=== PATIENT | male | born 1950 | race Caucasian/White ===

== ENCOUNTER 2016-08-12 08:00 | Emergency (ER) | payer MEDICARE, OTHER ==
[~2016-08-12] VITALS: Ht 170.2 cm; Wt 77.0 kg
[2016-08-12 08:04] VITALS: Ht 170.2 cm; Wt 77.0 kg
--- NOTE | 2016-08-12 09:55 | RADRPT ---
PROCEDURE: X-ray, Neck Soft Tissue. CLINICAL INDICATION: Dysphasia. TECHNIQUE: Soft tissue neck x-ray, AP and lateral views. COMPARISON: None. FINDINGS: Bony mineralization appears normal to slightly decreased. Vertebral body height and alignment are no rmal. Intervertebral disk narrowing with endplate sclerosis is most substantial at C4-C5. Anterior osteophytes are observed at C4-C5 and C5-C6. Moderate multilevel facet degenerative changes are seen throughout the cervical spine. Prevertebral/retropharyngeal soft tissues are normal. The epiglotti s is normal. The pre-epiglottic space is clear. IMPRESSION: No radiographic evidence of soft tissue abnormality of the neck. C4-C6 degenerative disk disease with multilevel facet arthropathy. RPTAT: HLST .Dalia Bro MD, Date Time Electronically viewed and signed by .Dalia Bro MD, on 08/12/2016 09:55 .T/
--- NOTE | 2016-08-12 10:24 | ERD ---
ER Documentation Chief Complaint Date/Time DATE: 08/12/16 TIME: 10:20 Chief Complaint difficultyh swallowing x 2 wks when eating & h/a after flu shot HPI 66-year-old male with no significant past medical history presents to the ED complaining of dysphasia that started 2 weeks ago. Reports that he is unable to swallow solids. States that he is able to swallow liquids without difficulty. Denies any anxiety. Denies any chest pain, shortness of breath, wheezing, stridor, headache, nausea, vomiting. Patient reports that this happened 3 years ago but this feels slightly different. ROS All systems reviewed and are negative except as per history of present illness. PMhx/Soc Medical and Surgical Hx: pt denies Surgical Hx History of Surgery: No Anesthesia Reaction: No Hx Neurological Disorder: No Hx Respiratory Disorders: No Hx Cardiac Disorders: Yes (htn) Hx Psychiatric Problems: No Hx Miscellaneous Medical Probl: No Hx Alcohol Use: No Hx Substance Use: No Physical Exam Vitals Vital Signs Date Time Temp Pulse Resp B/P Pulse Ox O2 Delivery O2 Flow Rate FiO2 08/12/16 08:04 97.4 58 18 147/87 98 Physical Exam Const: [id number], well-nourished. In no acute distress. Head: Atraumatic, normocephalic Eyes: Normal Conjunctiva without injection. No purulent discharge. PERRL. EOMI ENT: Normal external ear. Ear canal without erythema. Tympanic membrane pearly lane without effusion or bulging. Nasal canal clear with normal turbinates. Moist oropharynx without tonsillar exudates. Non-erythematous pharynx. Uvula midline. No drooling. No trismus. Neck: Full range of motion. No meningismus. No cervical lymphadenopathy. Resp: Clear to auscultation bilaterally. No wheezing, rhonchi, rales, or crackles. No accessory muscle use. No retractions. Cardio: Regular rate and rhythm. No murmurs, rubs or gallops. Abd: Soft, non tender, non distended. Normal bowel sounds. No palpable masses. No rebound tenderness. No guarding. Skin: No petechiae or rashes Back: No midline tenderness. No CVA tenderness. Ext: No cyanosis, or edema. Neur: Awake and alert. Psych: Normal Mood and Affect Procedures/MDM This is a 66-year-old male with no significant past medical history presents to the ED complaining of dysphasia that started 2 weeks ago. Patient is afebrile and nontoxic-appearing. Patient has normal vital signs. Patient speaking in full sentences without difficulty. No stridor noted. A soft tissue x-ray of the neck was ordered to further evaluate patient. PROCEDURE: X-ray, Neck Soft Tissue. CLINICAL INDICATION: Dysphasia. TECHNIQUE: Soft tissue neck x-ray, AP and lateral views. COMPARISON: None. FINDINGS: Bony mineralization appears normal to slightly decreased. Vertebral body height and alignment are normal. Intervertebral disk narrowing with endplate sclerosis is most substantial at C4-C5. Anterior osteophytes are observed at C4- C5 and C5-C6. Moderate multilevel facet degenerative changes are seen throughout the cervical spine. Prevertebral/retropharyngeal soft tissues are normal. The epiglottis is normal. The pre-epiglottic space is clear. IMPRESSION: No radiographic evidence of soft tissue abnormality of the neck. C4-C6 degenerative disk disease with multilevel facet arthropathy. Based on patient's age greater than 40 years old, cannot be ruled out at this time. No foreign bodies noted at this time. Differentials include Achalasia Schatzki Ring, Esophageal web. An endoscopy was ordered to further evaluate patient. Low suspicion for acute myocardial infarction, pneumothorax, pneumonia, cardiac tamponade, pulmonary embolism, pleural effusion, AAA, aortic dissection, Boerhaave's syndrome, cardiac dysrhythmias,meningitis, intracranial bleed, seizure, stroke, TIA or other emergent conditions. Departure Diagnosis: Primary Impression: Dysphagia Dysphagia type: unspecified Qualified Code: R13.10 - Dysphagia, unspecified type Condition: Stable Patient Instructions: Treating Dysphagia, Understanding Dysphagia Referrals: [facility] YOU HAVE RECEIVED A MEDICAL SCREENING EXAM AND THE RESULTS INDICATE THAT YOU DO NOT HAVE A CONDITION THAT REQUIRES URGENT TREATMENT IN THE EMERGENCY DEPARTMENT. FURTHER EVALUATION AND TREATMENT OF YOUR CONDITION CAN WAIT UNTIL YOU ARE SEEN IN YOUR DOCTORS OFFICE WITHIN THE NEXT 1-2 DAYS. IT IS YOUR RESPONSIBILITY TO MAKE AN APPOINTMENT FOR FOLOW-UP CARE. IF YOU HAVE A PRIMARY DOCTOR --you should call your primary doctor and schedule an appointment IF YOU DO NOT HAVE A PRIMARY DOCTOR YOU CAN CALL OUR PHYSICIAN REFERRAL HOTLINE AT IF YOU CAN NOT AFFORD TO SEE A PHYSICIAN YOU CAN CHOSE FROM THE FOLLOWING [facility] [address] [facility] [address] [facility] [address] [facility] [address] [facility] [address] [facility]. [facility] [address] [facility]. [facility] YOU HAVE RECEIVED A MEDICAL SCREENING EXAM AND THE RESULTS INDICATE THAT YOU DO NOT HAVE A CONDITION THAT REQUIRES URGENT TREATMENT IN THE EMERGENCY DEPARTMENT. FURTHER EVALUATION AND TREATMENT OF YOUR CONDITION CAN WAIT UNTIL YOU ARE SEEN IN YOUR DOCTORS OFFICE WITHIN THE NEXT 1-2 DAYS. IT IS YOUR RESPONSIBILITY TO MAKE AN APPOINTMENT FOR FOLOW-UP CARE. IF YOU HAVE A PRIMARY DOCTOR --you should call your primary doctor and schedule and appointment IF YOU DO NOT HAVE A PRIMARY DOCTOR YOU CAN CALL OUR PHYSICIAN REFERRAL HOTLINE AT . IF YOU CAN NOT AFFORD TO SEE A PHYSICIAN YOU CAN CHOSE FROM THE FOLLOWING [facility] INSTITUTIONS: [facility] [address] [place] [address] [facility] [address] [place] [address] [facility] [address] [place] [address] [facility] URGENT CARE/SPECIALTIES Additional Instructions: Es importante seguir con santana mdico de cabecera para abel derivacin al gastroenterlogo. Regrese a estas instalaciones si no se mejora graham esper bamos o graham le leonardojimos. JOSE CRUZ NOYOLA PA-C Aug 12, 2016 10:24
== END 2016-08-12 10:47 | disposition home or self-care (01) ==
LOC: FTE 08:00
DX: R13.10 Dysphagia, unspecified (principal); I10 Essential (primary) hypertension
CPT/HCPCS: 70360